=== PATIENT | female | born 1990 | race Caucasian/White ===

== ENCOUNTER 2017-01-08 15:07 | Emergency (ER) | payer OTHER ==
[2017-01-08 15:20] VITALS: BP 120/73
--- NOTE | 2017-01-08 15:53 | ERNOTE ---
ER Burn HPI Date of Service: 01/08/17 Stated Complaint: BURN ON LEG Time Seen by Provider: 01/08/17 15:23 Source: patient, family Exam Limitations: no limitations Immunizations: IMMUNIZATION HX Immunizations Up to Date No History of Influenza Vaccine No Hx Pneumococcal Vaccination No Allergies/Adverse Reactions: Allergies No Known Allergies Allergy (Unverified 01/08/17 15:23) Home Medications: HOME MEDICATIONS Clindamycin HCl [Cleocin HCl] 300 mg PO QID 7 Days #28 capsule 01/08/17 [Last Taken Unknown] - History of Present Illness Narrative: On Tuesday patient spilled boiling water on the inside of her RLE/calf. Was using neosporin but feels as if the erythema is spreading. Date (Duration): 01/03/17 Location of Incident: home Source of Burn: Present: hot liquid Severity: Present: moderate Smoke Inhalation: Present: none Burn Area(location): Present: rt lower extremity Review of Systems - Narrative Narrative: As mentioned above the patient experienced what sounds like a 2nd degree partial thickness burn on Tuesday. States she did not seek medical attention and started treating with neosporin. She states the blister burst several times. However last evening she noticed that the surrounding erythema began to spread and the burn itself appeared to be changing color. Denies any fever. - Review of Systems Constitutional: Present: no symptoms reported Respiratory: Present: no symptoms reported Cardiology: Present: no symptoms reported Gastrointestinal/Abdominal: Present: no symptoms reported Skin: Present: other - As reported above. Neurological: Present: no symptoms reported Endocrine: Present: no symptoms reported - Patient's Past Medical History Patient History - Medical: No pertinent hx Patient History - Cardiac/Respiratory: Asthma Patient History - Cancer: No Hx of Cancer Patient History - Surgical Procedures: No surgical history Patient History - Other: None - Social History Living Situations: home Psych History: No pertinent hx Smoking Status: Current every day smoker Have you smoked in the past 12 months: Yes - Immunizations Immunizations Up to Date: No Hx Pneumococcal Vaccination: No History of Influenza Vaccine: No Physical Exam - Physical Exam General Appearance: Present: wd/wn, alert, no apparent distress Respiratory: Present: no respiratory distress, no accessory muscle use Extremity Exam: Present: other - Right medial calf 3cm diameter 2nd degree partial thickness burn with 3cm surrounding erythema. Is blanchable with blister remnants present. Also appears to have some faint erythema extending both distally and proximally 2x4 cm which patient states is new. This was her concern. No significant pain with palpation although patient states it is more uncomfortable now than it was when it happened. Distal sensation intact with cap refill <2 seconds. No pustule drainage. Right post tibial pulse strong and intact. Neurological Exam: Present: alert, oriented, normal mood/affect, no motor/ sensory deficits ED Progress - Vital Signs Vital Signs: Vital Signs 01/08/17 15:15 Temperature 37.4 C Pulse Rate 82 Respiratory 16 Rate Blood Pressure 120/73 O2 Sat by Pulse 98 Oximetry - Progress/Reassessment Chief Complaint: [place] Departure Clinical Impression: Cellulitis Clinical Impression: (Ruled Out): - Departure Disposition: Home self-care Condition: Good Print Language: Haitian Additional Instructions: Appears that the cellulitis is localized and at the very beginning stages. Will start you on an antibiotic. Monitor for any fever, increased redness with streaks, pustule drainage, numbness in foot, etc. Continue with the topical neosporin and cover if in a dirty environment. If you worsen or do not improve follow up with family provider immediately. Prescriptions: Clindamycin HCl [Cleocin HCl] 300 mg PO QID 7 Days #28 capsule
== END 2017-01-08 15:58 | disposition home or self-care (01) ==
LOC: ER 15:07
DX: L03.115 Cellulitis of right lower limb (principal); X12.XXXA Contact with other hot fluids, initial encounter; Y93.9 Activity, unspecified; Y92.009 Unspecified place in unspecified non-institutional (private) residence as the place of occurrence of the external cause